=== PATIENT | male | born 1970 | race Caucasian/White ===

== ENCOUNTER → 2021-01-16 14:39 | Outpatient (CLI) | payer OTHER, SELFPAY ==
--- NOTE | ~2021-01-16 | XR_ITS ---
EXAMINATION: XR hip LT 2V w AP pelvis DATE: 01/16/2021 14:57 INDICATION: Left hip pain. TECHNIQUE: An anteroposterior view of the pelvis and 2 views of left hip were obtained. COMPARISON: None. FINDINGS: Bone alignment is normal. No fracture. There is mild osteoarthritis of the hips characteriz ed by tiny marginal osteophytes. IMPRESSION: 1. Mild osteoarthritis of the hips. Reviewed, dictated and finalized at location B.
== END ==
PROVIDERS: PCP Family Medicine; Visit Provider Family Medicine
DX: M16.0 Bilateral primary osteoarthritis of hip (principal)
CPT/HCPCS: 73502

== ENCOUNTER 2021-03-02 15:44 | Outpatient (CLI) | payer OTHER, SELFPAY ==
--- NOTE | ~2021-03-02 | CT_ITS ---
EXAMINATION: CT lumbar spine wo con DATE: 03/02/2021 16:06 INDICATION: Low back pain. Low abdominal pain. TECHNIQUE: Computed tomography (CT) of the lumbar spine was performed without intravenous contrast. A utomated exposure control and iterative reconstruction technique were employed. The dose-length produ ct was 1387.20 mGy-cm. COMPARISON: None FINDINGS: Bone alignment is normal. Vertebral body heights and intervertebral disc heights are normal . The following disc levels are specifically discussed: L1-L2: The disc does not extend beyond the endplate margin. There is mild right and moderate left fac et joint osteoarthritis. There is no neural foraminal stenosis. There is no central canal stenosis. L2-L3: The disc does not extend beyond the endplate margin. There is mild bilateral facet joint osteo arthritis. There is no neural foraminal stenosis. There is no central canal stenosis. L3-L4: The disc is bulging. There is mild bilateral facet joint osteoarthritis. There is mild bilater al neural foraminal stenosis. There is mild central canal stenosis. L4-L5: The disc is bulging. There is mild bilateral facet joint osteoarthritis. There is mild right n eural foraminal stenosis. There is mild central canal stenosis. L5-S1: The disc does not extend beyond the endplate margin. There is moderate bilateral facet joint o steoarthritis. There is no neural foraminal stenosis. There is no central canal stenosis. IMPRESSION: 1. Mild lumbar spondylosis. Reviewed, dictated and finalized at location A. IMPRESSION: 1. Mild lumbar spondylosis.
== END 2021-03-02 15:45 | disposition home or self-care (01) ==
PROVIDERS: PCP Family Medicine; Visit Provider Family Medicine
DX: R10.30 Lower abdominal pain, unspecified (principal); M53.3 Sacrococcygeal disorders, not elsewhere classified; M47.896 Other spondylosis, lumbar region
CPT/HCPCS: 72131

== ENCOUNTER → 2022-07-30 13:48 | Outpatient (CLI) | payer OTHER, SELFPAY ==
--- NOTE | ~2022-07-30 | US_ITS ---
US abdomen limited DATE: 07/30/2022 14:09 INDICATION: Right upper quadrant abdominal pain TECHNIQUE: Real-time imaging of liver, pancreas, gallbladder COMPARISON: None FINDINGS: There are multiple shadowing filling defects in the gallbladder consistent with multiple ga llstones. There is gallbladder wall thickening, measuring up to 3.4 mm, which may be consistent with acute or chronic cholecystitis. Negative sonographic Dalton's sign. The common bile duct measures 5 mm. The pancreas is partially obscured by bowel gas. No hepatic space-occupying mass lesion is evident. N ormal hepatopedal portal venous flow direction. IMPRESSION: Cholelithiasis and gallbladder wall thickening; consider acute or chronic cholecystitis Reviewed, dictated and finalized at Location A. Reviewed, dictated and finalized at location A. IMPRESSION: Cholelithiasis and gallbladder wall thickening; consider acute or c hronic cholecystitis
== END ==
PROVIDERS: PCP Physician Assistant; Visit Provider Physician Assistant
DX: R10.11 Right upper quadrant pain (principal); K80.20 Calculus of gallbladder without cholecystitis without obstruction
CPT/HCPCS: 76705

== ENCOUNTER 2022-08-08 13:53 | Outpatient (CLI) | payer OTHER, SELFPAY ==
[2022-08-08 15:16] LABS: Amylase 75 U/L (30-110); Lipase 173 U/L (23-300)
== END 2022-08-08 13:54 | disposition home or self-care (01) ==
PROVIDERS: PCP Physician Assistant; Visit Provider Surgery
DX: K81.9 Cholecystitis, unspecified (principal); Z01.818 Encounter for other preprocedural examination
CPT/HCPCS: 36415; 82150; 83690; 86850; 86900; 86901

== ENCOUNTER 2022-08-12 00:56 | Day surgery (SDC) | payer OTHER, SELFPAY ==
[2022-08-06 12:16] VITALS: BMI 32.3
--- NOTE | 2022-08-06 12:21 | PC.NURSE ---
Report to the Outpatient Waiting Room, entrance under the green pavilion located off [facility], at time 7:00 on date 08/12/22. Planned Procedure Time: 9:00. Time changes happen often and if your time is changed the preop area will call you the afternoon before. - You and your visitor will be asked to self-screen and do not enter if you have any COVID symptoms. - We encourage only one visitor and NO visitors under age 16 are allowed at this time. Your visitor will receive communication by the phone number that is given day of service. - The patient visitor is requested to social distance or may leave the building when not with patient due to restrictions. - A mask is OPTIONAL within the hospital. Patients may have clear liquids (water, carbonated beverages, clear teas, apple juice) until 3 hours prior to surgery (6:00) with a maximum of 20 ounces. - No food from midnight until time of surgery Take the following medications with a SIP of water the morning of surgery: N/A Medications to discontinue per physician: N/A Date to take last dose: N/A Please no make-up, nail divehi, hairspray, perfume, deodorant, or body powder the day of surgery. No jewelry (including any body piercings) or valuables the day of surgery, leave them at home. Please take a shower or bath the night before, or the morning of, surgery with an antibacterial soap (HIBICLENS). Wear comfortable, loose fitting clothing. - Jewelry must be removed prior to entering the operating room. Rings and piercings that are not removed may be cut off. - The hospital will not accept responsibility for valuables. - Please leave all valuables, including medications, at home the day of surgery. If you are going home after surgery, a licensed otr van cdl truck driver must drive you home. - NO public transportation without another adult. - We recommend that an adult stay with you for 24 hours following discharge. - We also recommend that you do not drive, make important decision, drink alcoholic beverages, or take any drugs that were not prescribed by your health care provider for at least 24 hours after your discharge time. Follow any additional instructions given to you from your surgeon. If you or anyone in your household have experienced Covid symptoms in the past week, please notify your surgeon or the nurse liaison at the phone number below for possible testing. Telephone instructions given to ZOYA NINO and asked if any additional questions and then verbalized understanding. Patient advised to call surgeon office or pre surgery nurse liaison [phone] if any additional questions.
[2022-08-12] VITALS (8 sets, daily range): BP systolic 125–155; BP diastolic 72–95; PULSE 60–94; RESP 13–20; TEMP 36.1–36.3; O2SAT 97–100
[2022-08-12] MEDS: ACETAMINOPHEN 500 MG TABLET 1000 MG PO (07:48)
[2022-08-12] MEDS: LACTATED RINGERS 1,000 ML 30 ML IV CONT ×2 (07:55→10:05)
--- NOTE | 2022-08-12 08:34 | P.PNAN_ITS ---
Anes - Initial Pre Proc Eval Procedure: Operation Date: 08/12/22 09:00 Proposed Procedures p Laparoscopic Cholecystectomy - Kristi Diamond MD Date/Time: 08/12/22 08:34 Surgeon: Kristi Diamond MD Pre Op Diagnosis: chronic cholecystitis with calculus Patient Data Age: 52 Gender: M Height: 1.78 m Weight: 102.8 kg Last Vital Signs Temp 36.3 C L 08/12/22 08:23 Pulse 62 08/12/22 08:23 Resp 16 08/12/22 08:23 BP 127/72 08/12/22 08:23 Pulse Ox 99 08/12/22 08:23 O2 Del Method Room Air 08/12/22 08:23 Allergies Allergy/AdvReac Type Severity Reaction Status Date / Time Penicillins Allergy Mild Hives Verified 08/12/22 07:41 rosuvastatin Allergy Mild nausea and Verified 08/06/22 12:16 dizzy tetracycline Allergy Mild Fever Verified 08/12/22 07:41 atorvastatin Allergy Unknown dizziness Verified 08/06/22 12:16 Home Medications Medication Instructions Recorded Confirmed Type No Home Medications 08/05/22 08/06/22 History Patient hx anesthesia problems: none Family hx anesthesia problems: none Results Review: All pre-operative results and documents have been reviewed as part of the pre-operative evaluation. [facility] Past Medical History Medical History Hyperlipidemia Low testosterone Secondary hypotension Surgical History Surgical History (Updated 08/05/22 @ 13:52 by Josefina Draper) Hx of appendectomy 1978 Hx of tonsillectomy 1989 Family History Family History Other Colon polyp Hyperlipidemia Social History Social History Social History: Smoking status: Never smoker Second hand tobacco smoke exposure: No Alcohol intake: never Substance use: never Substance use type: does not use Living arrangements: with family Gender identity (if verbalized by the patient): Male Sexual Orientation (if Verbalized by the Patient): Straight or Heterosexual Spiritual care concerns: No Anes - Eval Final PreProcedure Day of Procedure 08/12/22 08:34 Patient weight: obese Heart: regular rate and rhythm Lungs: clear to auscultation Airway: Mallampati scale class II Neurological: alert and oriented Last oral intake: >/= 8 hours ASA classification: II Emergent: no Anesthetic plan: proceed Anesthesia type and monitoring: general ETT and standard monitoring Results Review: All pre-operative results and documents have been reviewed as part of the pre- operative evaluation. Informed Consent: The patient's anesthetic plan and its attendant risks and benefits were discussed with the patient/family/POA. Questions were solicited and answers provided to the satisfaction of the patient/family/POA.
[2022-08-12] MEDS: KETOROLAC 15 MG/ML VIAL (*BKC) IV PUSH (08:45)
--- NOTE | 2022-08-12 08:53 | WPDHPUPDATE1 ---
History and Physical Update Update Date/Time: 08/12/22 08:53 History and Physical has been reviewed, including an updated exam of the patient. There are NO changes in the patient's condition. Risks, benefits, and alternatives have been discussed and questions answered. Patient agrees to proceed with procedure.
[2022-08-12] MEDS: ceFAZolin 2 GM/D5W 50 ML 2 GM/50 ML BAG IVPB (08:59)
[2022-08-12] MEDS: BUPIVACAINE/EPINEPHRINE 0.25% 50 ML VIAL INFILTRATE (09:22)
--- NOTE | 2022-08-12 09:51 | W.PM.PROC2 ---
Procedure Note - Detailed Date of Procedure 08/12/22 Pre-op Diagnosis cholecystitis with calculus Post-op Diagnosis Same Procedure Performed Laparoscopic cholecystectomy Surgeon Kristi Diamond MD Anesthesia General Indications 52-year-old male presented to the office complaining of postprandial right upper quadrant abdominal pain associated with nausea and vomiting. Workup including imaging significant for cholecystitis, cholelithiasis. Findings Cholecystitis with cholelithiasis Description of Procedure The patient was taken to the operating room placed in the supine position. After adequate induction of general anesthesia, the patient was prepped and draped in normal sterile fashion. A time-out was then performed to verify the patient's identity as well as the procedure being performed. I then made a 5 mm incision in the infraumbilical region. Through this, a Veress needle was placed into the peritoneal cavity and CO2 gas was then insufflated. After adequate pneumoperitoneum was achieved, the Veress needle was removed and a 5 mm optiview trocar was placed through this incision under direct visualization. I then placed the laparoscope through this trocar site and under direct visualization placed a further 12 mm subxiphoid port as well as 2 additional 5 mm ports in the right upper abdomen. The gallbladder was then identified and was noted to be inflamed, distended, and full of gallstones. I was able to place a grasper at the dome of the gallbladder and this was retracted anterior and cephalad up over the liver. A 2nd retractor was then placed at the infundibulum and retracted laterally, this allowed visualization of the triangle of Calot. I then was able to visualize the cystic duct in its entirety from its proximal insertion into the gallbladder, to its distal junction with the common hepatic/common bile duct junction. At this point, I carefully skeletonized the proximal cystic duct with the [place] dissector. I then clipped and transected the proximal cystic duct. Next I visualized the cystic artery. Again the artery was skeletonized, clipped, and transected. I then used the Bovie cautery to take down the peritoneal attachments of the gallbladder off the liver bed. This was somewhat difficult given the amount of inflammation in the posterior space. Once the gallbladder specimen was completely detached, an endo-pouch was placed through the 12 mm port site. I then placed the gallbladder specimen into the Endo pouch and removed the endo-pouch from the 12 mm port site. The specimen will now be sent to pathology for further review. I then copiously irrigated the right upper quadrant. Some mild oozing was noted in the liver bed and this was controlled with the bovie cautery. Hemostasis was noted in the liver bed, the clips were noted to be in good position on both the cystic duct stump and the cystic artery stump. No other pathology was noted in the right upper quadrant. I then moved the laparoscope to the subxiphoid port. No iatrogenic injury or other pathology was noted in the lower abdomen. I then closed the 12 mm trocar site under direct visualization using the Kareem cone and 0 Vicryl suture. At this point, the abdomen was desufflated and all ports removed. All port sites were then closed with 4.O Monocryl subcuticular sutures. Dermabond was placed on each incision. The patient tolerated the procedure well, was extubated in the operating room postoperative and will be transferred to the recovery room in stable condition Estimated Blood Loss 20 Drains No Packing No Pathology Yes Complications No immediate complications Condition Stable Disposition PACU [facility] Billing Surgery - Charge Forward: Surgery Billing
[2022-08-12] MEDS: oxyCODONE HCL (*CRX) 5 MG TAB IR PO (11:32)
== END 2022-08-12 12:16 | disposition home or self-care (01) ==
PROVIDERS: PCP Physician Assistant; Visit Provider Surgery
PROC: 0FT44ZZ Resection of Gallbladder, Percutaneous Endoscopic Approach (ICD-10-PCS; CPT 47562; principal; 2022-08-12 09:00)
DX: K80.10 Calculus of gallbladder with chronic cholecystitis without obstruction (principal); E66.9 Obesity, unspecified; Z68.32 Body mass index [BMI] 32.0-32.9, adult
CPT/HCPCS: 47562; 88304; A9270; J0330; J0690; J1100; J1170; J1885; J2250; J2405; J2704; J2710; J3010; J7120

== ENCOUNTER 2022-09-13 01:56 | Day surgery (SDC) | payer OTHER, SELFPAY ==
[2022-09-05 12:25] VITALS: BMI 31.9
[2022-09-13] MEDS: LACTATED RINGERS 1,000 ML 150 ML IV CONT (11:15)
[2022-09-13 11:18] VITALS: BP 130/76; PULSE 83; RESP 16; TEMP 36.2; O2SAT 98; BMI 31.7
--- NOTE | 2022-09-13 11:34 | PM.HPGS ---
History of Present Illness History of Present Illness Consent: Risks, benefits, and alternatives have been discussed and questions answered. Patient agrees to proceed with procedure. Chief complaint: neoplasm screening Narrative: Chaim Stanley is a 52 year old male here for first screening colonoscopy Review of Systems Constitutional: Constitutional: Denies headache(s) and Denies weakness Eyes: Eyes: Denies blurry vision ENT: Reports Normal hearing present, Denies headache(s) and Denies neck pain Cardiovascular: Cardiovascular: Denies chest pain and Denies dyspnea Respiratory: Respiratory: Denies dyspnea Gastrointestinal: Gastrointestinal: Reports no additional gastrointestinal complaints Genitourinary: Genitourinary: Denies dysuria Musculoskeletal: Musculoskeletal: Denies neck pain Integumentary/Breasts: Skin/Breast: Denies dry skin Neurologic: Reports Normal hearing present, Denies headache(s) and Denies weakness Psychiatric: Psychiatric: Denies anxiety Endocrine: Endocrine: Denies change in body appearance Hematologic/Lymphatic: Hematologic/Lymphatic: Denies easy bleeding Allergic/Immunologic: Allergic/Immunologic: Denies urticaria [facility] Past Medical History Medical History (Updated 08/28/22 @ 09:55 by Keisha Gandhi, [facility]) Hyperlipidemia Low testosterone Secondary hypotension Surgical History Surgical History (Updated 08/28/22 @ 09:31 by SALBADOR Govea) Hx laparoscopic cholecystectomy 08/12/22 Hx of appendectomy 1978 Hx of tonsillectomy 1989 Family History Family History Other Colon polyp Hyperlipidemia Social History Social History Social History: Smoking status: Never smoker Second hand tobacco smoke exposure: No Alcohol intake: unknown Substance use: never Substance use type: does not use Living arrangements: with family Gender identity (if verbalized by the patient): Male Sexual Orientation (if Verbalized by the Patient): Straight or Heterosexual Spiritual care concerns: No Meds Home Medications and Allergies Home Medications Medication Instructions Recorded Confirmed Type No Home Medications 09/05/22 09/05/22 History Allergies Allergy/AdvReac Type Severity Reaction Status Date / Time Penicillins Allergy Mild Hives Verified 08/28/22 09:32 rosuvastatin Allergy Mild nausea and Verified 08/28/22 09:32 dizzy tetracycline Allergy Mild Fever Verified 08/28/22 09:32 atorvastatin Allergy Unknown dizziness Verified 08/28/22 09:32 Vital Signs Vital Signs - 24 hr 09/13/22 11:18 Temperature 97.2 F L Pulse Rate 83 Respiratory Rate 16 Blood Pressure 130/76 Pulse Oximetry 98 Oxygen Delivery Room Air Exam Const: General: comfortable and no acute distress HENMT: Face/Nose/Sinus: Normal nares present Eyes: General: appearance normal, both eyes and all related structures Neck: Neck: no JVD Resp: Auscultation: clear to auscultation bilaterally Cardio: Rate: regular rate Rhythm: regular rhythm GI: Inspection: non-distended GI Palp: Yes Soft to palpation Skin: General skin exam: normal color Neuro: General: gait normal Speech: normal speech Extrem: General: normal to inspection Psych: Mental Status: mental status grossly normal Assessment and Plan Assessment and plan (1) Colon cancer screening: Code(s): Z12.11 - Encounter for screening for malignant neoplasm of colon Status: Acute Assessment and Plan: colonoscopy
--- NOTE | 2022-09-13 11:35 | WPDANESEPPF ---
Anes - Initial Pre Proc Eval Procedure: Operation Date: 09/13/22 13:00 Proposed Procedures p Screening Colonoscopy - Darrius Shay MD Date/Time: 09/13/22 11:35 Surgeon: Darrius Shay MD Pre Op Diagnosis: neoplasm screening Patient Data Age: 52 Gender: M Height: 1.78 m Weight: 100.3 kg Last Vital Signs Temp 97.2 F L 09/13/22 11:18 Pulse 83 09/13/22 11:18 Resp 16 09/13/22 11:18 BP 130/76 09/13/22 11:18 Pulse Ox 98 09/13/22 11:18 O2 Del Method Room Air 09/13/22 11:18 Allergies Allergy/AdvReac Type Severity Reaction Status Date / Time Penicillins Allergy Mild Hives Verified 08/28/22 09:32 rosuvastatin Allergy Mild nausea and Verified 08/28/22 09:32 dizzy tetracycline Allergy Mild Fever Verified 08/28/22 09:32 atorvastatin Allergy Unknown dizziness Verified 08/28/22 09:32 Home Medications Medication Instructions Recorded Confirmed Type No Home Medications 09/05/22 09/05/22 History Patient hx anesthesia problems: none Family hx anesthesia problems: none Results Review: All pre-operative results and documents have been reviewed as part of the pre-operative evaluation. [facility] Past Medical History Medical History (Updated 08/28/22 @ 09:55 by Keisha Gandhi [facility]) Hyperlipidemia Low testosterone Secondary hypotension Surgical History Surgical History (Updated 08/28/22 @ 09:31 by SALBADOR Govea) Hx laparoscopic cholecystectomy 08/12/22 Hx of appendectomy 1978 Hx of tonsillectomy 1989 Family History Family History Other Colon polyp Hyperlipidemia Social History Social History Social History: Smoking status: Never smoker Second hand tobacco smoke exposure: No Alcohol intake: unknown Substance use: never Substance use type: does not use Living arrangements: with family Gender identity (if verbalized by the patient): Male Sexual Orientation (if Verbalized by the Patient): Straight or Heterosexual Spiritual care concerns: No Anes - Eval Final PreProcedure Day of Procedure 09/13/22 11:35 Patient weight: obese Airway: Mallampati scale class II ASA classification: II Anesthesia type and monitoring: general GIVS and standard monitoring Results Review: All pre-operative results and documents have been reviewed as part of the pre-operative evaluation. Informed Consent: The patient's anesthetic plan and its attendant risks and benefits were discussed with the patient/family/POA. Questions were solicited and answers provided to the satisfaction of the patient/family/POA.
[2022-09-13 11:53] VITALS: BP 104/69; PULSE 62; RESP 22; O2SAT 99
[2022-09-13 12:03] VITALS: BP 114/77; PULSE 65; RESP 20; O2SAT 96
[2022-09-13 12:13] VITALS: BP 117/78; PULSE 62; RESP 15; O2SAT 97
== END 2022-09-13 12:16 | disposition home or self-care (01) ==
PROVIDERS: PCP Physician Assistant; Visit Provider Internal Medicine Gastroenterology
PROC: 0DJD8ZZ Inspection of Lower Intestinal Tract, Via Natural or Artificial Opening Endoscopic (ICD-10-PCS; CPT 45378; principal; 2022-09-13 13:00)
DX: Z12.11 Encounter for screening for malignant neoplasm of colon (principal); D12.0 Benign neoplasm of cecum; K57.30 Diverticulosis of large intestine without perforation or abscess without bleeding; E66.9 Obesity, unspecified; Z68.31 Body mass index [BMI] 31.0-31.9, adult
CPT/HCPCS: 45385; 88305; J2704; J7120